=== PATIENT | female | born 1990 | race Caucasian/White ===

== ENCOUNTER → 2023-08-08 09:30 | Outpatient (BNV) | payer OTHER, SELFPAY | PROVIDERS: Visit Provider Psychiatry & Neurology Psychiatry | DX: F10.90 Alcohol use, unspecified, uncomplicated (principal); F39 Unspecified mood [affective] disorder | CPT/HCPCS: 90792; 99213 ==

== ENCOUNTER 2023-08-24 09:15 | Outpatient (RCR) | payer OTHER, SELFPAY ==
--- NOTE | 2023-08-08 10:24 | HO.PS.ADMBH ---
HPI Date of Service: 08/08/23 Chief Complaint: anxiety,depression,AUD Sources of Information: patient interviewed and chart reviewed HPI Guardianship: No Medical Problems Affecting Mental Status: No Narrative: HPI: Referral with family support for mood and substance use disorder. [facility] in May, [facility] for 2 weeks afterwards. Last drink was in June. Endorses intermittent low mood and anxiety, low energy and motivation and excess sleeping at times. Can get suicidal if she drinks. Has been exercising less. Appetite okay. Also discussed sleep hygiene in the context of staying between her own apartment and her boyfriend's place. No psychosis. No SI or agitation. Prefers nonmedication approaches in the context of drug addiction and not wanting to replace 1 thing with another. Also open to same should the need arise in the future. Reports wanting to continue work that she started while at the IOP program in [facility] i.e. groups, hearing other people's perspectives and supports. Found that very helpful. Past Psych: Depression, anxiety and substance use disorder. Last inpatient episode [facility] in May 2023. That was followed with [facility] for just over 2 weeks. Reports that she has done well in the past on Lexapro and Adderall during her college years. Reports Lexapro was very helpful for anxiety but significant sexual side effects. Adderall was helpful, but reports that the crashes or terrible and therefore prefers no stimulant medications. Last had Adderall in 2019. Also trial of Cymbalta in the past. No other med trials. Social: as per chart was born in [place] and has 1 older brother. Family moved to [facility] when she was 2. Lots of academic pressure within the family with mom being a professor at [employer], father ER physician and her brother and ER physician. Attended [employer] studying visual and literary arts. Moved to [place] age 25 and then back to [facility]. Mom has dementia. No substance issues within the family, with the exception of an uncle. Currently living in an apartment in [place]. Also in a relationship since October 2022 and spends time at her boyfriend's apartment. Reports neighbors are good friends. Brother supportive. Last worked in April 2023 and [employer]. 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 No legal issues. Substance: Alcohol use disorder. History of meth use. Alcohol has been most recent issue and has been sober up to 3 months at a time, with longest period around 105 days up until relapse in November 2022. Was utilizing friends and family support, recovery bacilio zoom meetings and exercise. Last drink was 07/08/2023. Past Psychiatric History: Depression, anxiety and substance use disorder. Last inpatient episode [facility] in May 2023. That was followed with [facility] for just over 2 weeks. Reports that she has done well in the past on Lexapro and Adderall during her college years. Reports Lexapro was very helpful for anxiety but significant sexual side effects. Adderall was helpful, but reports that the crashes or terrible and therefore prefers no stimulant medications. Last had Adderall in 2019. Also trial of Cymbalta in the past. No other med trials. Prefers not having medications and working with nonmedication approaches. [facility] Social History: Socially as per chart was born in [place] and has 1 older brother. Family moved to [facility] when she was 2. Lots of academic pressure within the family with mom being a professor at [employer], father ER physician and her brother and ER physician. Attended [employer] studying visual and literary arts. Moved to [place] age 25 and then back to [employer]. Mom has dementia. No substance issues within the family, with the exception of an uncle. Currently living in an apartment in [place]. Also in a relationship since October 2022 and spends time at her boyfriend's apartment. Reports neighbors are good friends. Brother supportive. Last worked in April 2023 and [employer]. 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 No legal issues. Substance History: Alcohol use disorder. History of meth use. Alcohol has been most recent issue and has been sober up to 3 months at a time, with longest period around 105 days up until relapse in November 2022. Was utilizing friends and family support, recovery bacilio zoom meetings and exercise. Last drink was 07/08/2023. Meds/Allergies Allergies Allergies Allergy/AdvReac Type Severity Reaction Status Date / Time amoxicillin Allergy rash Verified 08/08/23 12:38 Mental Status Exam Mental Status Exam Narrative: Pleasant. Engaged. Fairly presented. Organized and articulate. Euthymic. No SI. No HI. No agitation. No psychosis. Insight and judgment good Telehealth Telehealth Location of provider rendering services: other ([facility]) Location of patient: other ([facility]) Telehealth method: video Patient verbally consented to treatment: Yes Minutes spent on Phone/Video with Pt.: 30 Assessment & Plan Assessment & Plan (1) Mood disorder: Status: Acute Code(s): F39 - Unspecified mood [affective] disorder (2) Alcohol use disorder: Status: Acute Code(s): F10.90 - Alcohol use, unspecified, uncomplicated Plan Fulfills criteria for partial hospital program treatment. No indication for psychotropic medications as per evaluation with patient and also their preferences. Will be utilizing community based supports for alcohol use disorder. Does not need further follow-up with psychiatrist at partial hospital program unless patient or staff feel the need for same. Patient educated on: therapeutic strategies Informed Consent: understands Reason for continued partial hosp. stay Substantial Risk for: med/psych decompensation Certification I certify that partial hospital treatment is medically necessary due to the symptoms and problems resulting from the patient's mental illness and the failure to treat the patient at the partial hospital level of care would likely result in the patient requiring inpatient psychiatric care which could not be prevented at a less intensive level of care. Time Spent With Patient Time: Total time managing care of this patient today _45___ minutes.
[2023-08-08 13:14] VITALS: BMI 21.9
--- NOTE | 2023-08-08 14:02 | PC.ADMIT ---
Patient is a 33 year old female who holds a dx of alcohol use disorder, ADHD, KACIE, and MDD who was referred to [facility] by her father as patient has been struggling with alcohol use for many years. Patient reportedly fell while intoxicated and as a result fractured her jaw which needed surgical repair along with having issues with her upper teeth. She reports last use of alcohol was a month ago. Denied current use. Hx of detox for ETOH in May 2023 and step down to [facility]. Patient currently not employed. Wants to work on continued sobriety from ETOH. Stated her family is supporting her financially. 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 She reports her biggest source of stress is her relationship and feeling she is unable to work at this time. Patient is alert and oriented x4. Calm and cooperative. Presented with depressed mood and anxious affect. Denied SI. I gave patient a copy of her safety/relapse plan and I reviewed this with her. She is currently not on any prescription medications. She was prescribed Gabapentin 300 mg TID filled on 07/26/23 however stated she is not taking this medication and was unclear about why she was prescribed this. Reports her therapist and family are supportive.
[2023-08-08 14:41] VITALS: BP 93/66; PULSE 70; TEMP 36.9
--- NOTE | 2023-08-09 17:53 | HO.PHP ---
Clients case was reviewed and opened today in treatment team.
--- NOTE | 2023-08-15 07:51 | HO.PHP ---
08/14/23- Late entry: Selena did not arrive for community meeting and outreach attempts were in the process of being made. When [facility] staff went to begin group one Selena was in the kitchen area. [facility] staff informed Selena that she is unable to partake for the day due to the [facility] guidelines and we had not received any calls. [facility] staff member voiced if she had contacted the program to let the team know she was running late, then we would allow her to stay. Selena appeared agitated and stated she thought she has until 9:40 AM to show up to program. [facility] staff voiced that if she contacts the program and can get there by that time, then she is allowed to attend, but again we received no phone call. Selena asked if the clinician is informing her she has to leave. [facility] staff disclosed unfortunately yes due to our protocols. [facility] staff went to assess safety and Selena turned around to leave. [facility] staff asked again while Selena was walking away. Selena noted that she is safe and will be here tomorrow. [facility] staff was receptive.
--- NOTE | 2023-08-17 16:17 | P.PNPSP_ITS ---
Subjective Subjective Date of Service: 08/17/23 Reason For Visit: anxiety,depression,AUD Interim History: Patient was seen for follow-up today. Patient opened up about her struggles with alcoholism, relapsing a month ago which led to blacking out and sustaining significant injures to her face and mouth. She is status post maxilla fracture repair and oral surgery. She appears to be healing well. She expresses a deepening appreciation for the seriousness of her illness but relays a number of obstacles (mostly intrinsic aspects of her personality and habits - such as an independent and somewhat oppositional/anti- authoritative streak as well as some manipulative behaviors which sounds like get particualrly set off in the midst of inpersonal conflicts/relationship stressors) that interfere with her successfully being in treatment or seeking treatment in the past for alcohol addiction. She expressed some reservation about starting medication but says she is less apprehensive about medication than she was at the start of [facility], may be on account of gains in insight as stemming from her treatment in group therapy thus far in the program. She agrees she would also likely benefit from medications for stress-management, anxiety and mood, but for now feels she is more open and willing to take something to help maintain sobriety/harm reduction. Her struggles appear to be less about managing the day-to-day cravings or urges to drink, and more to do with relapsing in the context of poor impulse control when provoked by specific triggers (namely arguments - I drink at people ) In fact, she says her intention since May 29 was to remain sober, and initially deemed her 2-day relapse in early June (out of the past 3 months sober) as a testament to her ability to remain sober. However we discuss alternative perspectives: that her 2-day relapse in fact may have lasted a lot longer had she not got severely injured, and the fact that she had only relapsed a day earlier before there were serious consequences to her drinking. She is says the fear of something worse happening in the future on account of relapsing is what is motivating her to consider medication options to discourage drinking, particularly because she is more prone to impulsively relapsing than making the intentional decision to start drinking again. Mental Status Exam Mental Status Exam Patient Appearance: Well Grooomed Patient Orientation: Person, Place, Time and Situation Level of Consciousness: Awake and Alert Patient Behavior: Appropriate Mood Description: Apprehensive Affect Description: Appropriate, Cheerful and Anxious Patient Cognition Impaired: No Ability to Follow Directions: Good Speech Pattern: Clear Memory Description: Intact Hallucinations: None Delusions: Not Present Thought Process: Intact Thought Content: positive for Intact (Denies SI, HI. No AVH. Relevant to stres sors, irritability, anxiety) Abnormal Motor Activity Signs and Symptoms: Restlessness Judgement: Fair Judgement and Insight: good/fair but adequate Diagnostics Vital Signs (24Hr): BMI result Body Mass Index 21.9 Assessment & Plan Assessment & Plan (1) Alcohol use disorder: Status: Acute Code(s): F10.90 - Alcohol use, unspecified, uncomplicated (2) Mood disorder: Status: Acute Code(s): F39 - Unspecified mood [affective] disorder Assessment and Plan: we discussed patient might be a good candidate for disulfarim, which she may be open to and was encouraged to take the weekend to fully consider. She is also considering treatment for mood, but she was not as readily engagable regarding this aspect of treatment at this time. She agreed to return to this discussion next week. Plan Continue treatment plan. Hopefully will be starting Antabuse next week Patient educated on: diagnosis and medication risk/benefits Informed Consent: understands Certification I certify that partial hospital treatment is medically necessary due to the symptoms and problems resulting from the patient's mental illness and the failure to treat the patient at the partial hospital level of care would likely result in the patient requiring inpatient psychiatric care which could not be prevented at a less intensive level of care. Total time managing care of this patient today __30__ minutes. Discharge Plan Discharge Attending provider: Fortunato Clark Additional Instructions: Selena has an OP therapist, Gregory Andrews, through [facility]. Selena's next appointment is August 30, 2023 at 2:30 PM. Medications: No Action No Known Home Meds Stand Alone Forms: Patient Portal Discharge page
--- NOTE | 2023-08-21 16:23 | P.PNPSP_ITS ---
Subjective Subjective Date of Service: 08/21/23 Reason For Visit: anxiety,depression,AUD Interim History: Patient seen for follow-up. No acute issues in interim. Attending group. Missed 3 days last week, was slated for discharge today but received an extension. She continues to be conflicted about treatment. She was at times tearful about this. 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 She was prescribed naltrexone and gabapentin in the past and is not willing to take these. She reports her mood as anxious, she says she is calm when she is at the program due to the structure. She says her life is erratic and she struggles more in [facility]. She reports wanting help with ADHD symptoms but is unable to tolerate stimulants without abuse. We explore some non-stimulant med in general she continues to be reluctant to take a medication everyday. Also adds that her boyfriend has a traumatic history related to substance abuse and mental health issues in the family and indicates that being on something regularly will likely cause conflicts, leading to more stress and inevitably undermine the reason for taking it in the first place. Insight limited but improving, she recognizes she needs extra support to maintain sobriety, and continues to struggle with irritability, impulsivity and anger, but adverse to taking something on daily basis. She says she would be wiling to try something PRN to address those moments when she feels overstimulated, agitated, whichis often when she feels more inclined to act out or relapse. Mental Status Exam Mental Status Exam Narrative: Patient Appearance: Well Grooomed Patient Orientation: Person, Place, Time and Situation Level of Consciousness: Awake and Alert Patient Behavior: Appropriate Mood Description: Anxious, tearful at moments Affect Description: Appropriate, Cheerful and Anxious Patient Cognition Impaired: No Ability to Follow Directions: Good Speech Pattern: Clear Memory Description: Intact Hallucinations: None Delusions: Not Present Thought Process: Intact Thought Content: relavent to stressors, conflicted about treatment, medications (Denies SI, HI. No AVH) Abnormal Motor Activity Signs and Symptoms: Restlessness Judgement: Fair Judgement and Insight: good/fair but adequate Diagnostics Vital Signs (24Hr): BMI result Body Mass Index 21.9 Assessment & Plan Assessment & Plan (1) Alcohol use disorder: Status: Acute Code(s): F10.90 - Alcohol use, unspecified, uncomplicated (2) Mood disorder: Status: Acute Code(s): F39 - Unspecified mood [affective] disorder Plan start quetiapine 12.5 - 25 mg up to twice daily as needed for agitation/anxiety Certification I certify that partial hospital treatment is medically necessary due to the symptoms and problems resulting from the patient's mental illness and the failure to treat the patient at the partial hospital level of care would likely result in the patient requiring inpatient psychiatric care which could not be prevented at a less intensive level of care. Total time managing care of this patient today ____ minutes. Discharge Plan Discharge Attending provider: Fortunato Clark Additional Instructions: Selena has an OP therapist, Gregory Andrews, through [facility]. Selena's next appointment is August 30, 2023 at 2:30 PM. Medications: New quetiapine 25 mg tablet 12.5 - 25 mg PO BID PRN (Reason: agitation) Qty: 20 0RF Stand Alone Forms: Patient Portal Discharge page Patient Education: Alcohol Use Disorder (DC)
--- NOTE | 2023-08-24 15:07 | P.PNPSP_ITS ---
Subjective Subjective Date of Service: 08/24/23 Reason For Visit: anxiety,depression,AUD Interim History: Patient seen for discharge today. Patient reportedly tried Seroquel and it caused her considerable fatigue and sedation. She acknowledges she had taken a full tablet as opposed to 1/4 or 1/2 tablet as we had discussed due to her sensitivity to medications. She said she did split the tablet but then impulsively took both halves because I got addiction problems and feels she is unable to take the medication as directed. Her boyfriend also was reportedly upset about it and wanted to speak to me. She vents in general about her frustration with medication-approaches to addressing mental health issues, and states she has no intention of taking medication any further. I reassure her that the choice to take or not take medication is entirely hers and the only reason we had trialled prn Seroquel was that she was open to taking something on an as needed basis only, and had agreed she might need something to address agitation particularly when triggered that often leads to her impulsively relapsing. She plans to throw out the medication and we reviewed ways to discard the medication safely and responsibly. No other acute concerns or issues. She reports her mood as stable at this time and appreciates that the program gave her an extra couple of days to sort out a plans to sign up for some classes and provide a little more structure to her day moving forward. She denies any SI, no hopelessness. She denies any anger, AI or HI. She appears irritable at times, but maintains behavioral control and was more engaged and agreeable over the course of our discussion today. Mental Status Exam Mental Status Exam Narrative: Patient Appearance: Well Grooomed Patient Orientation: Person, Place, Time and Situation Level of Consciousness: Awake and Alert Patient Behavior: Appropriate Mood Description: Anxious, tearful at moments Affect Description: Appropriate, Cheerful and Anxious Patient Cognition Impaired: No Ability to Follow Directions: Good Speech Pattern: Clear Memory Description: Intact Hallucinations: None Delusions: Not Present Thought Process: Intact Thought Content: relavent to stressors, conflicted about treatment, medications (Denies SI, HI. No AVH) Abnormal Motor Activity Signs and Symptoms: Restlessness Judgement: Fair Judgement and Insight: good/fair but adequate Diagnostics Vital Signs (24Hr): BMI result Body Mass Index 21.9 Assessment & Plan Assessment & Plan (1) Alcohol use disorder: Status: Acute Code(s): F10.90 - Alcohol use, unspecified, uncomplicated (2) Mood disorder: Status: Acute Code(s): F39 - Unspecified mood [affective] disorder Plan Discharge from [facility]. Does not plan to continue with medication She states she is satisfied with treatment here and feels she most benefits from non-medication therapeutics. Patient educated on: diagnosis, medication risk/benefits, substance abuse and therapeutic strategies Informed Consent: understands Reason for contiued partial hosp. stay Substantial Risk for: stable for discharge Certification I certify that partial hospital treatment is medically necessary due to the symptoms and problems resulting from the patient's mental illness and the failure to treat the patient at the partial hospital level of care would likely result in the patient requiring inpatient psychiatric care which could not be prevented at a less intensive level of care. Total time managing care of this patient today _30___ minutes. Discharge Plan Discharge Attending provider: Fortunato Clark Additional Instructions: Selena has an OP therapist, Gregory Andrews, through [facility]. Selena's next appointment is August 30, 2023 at 2:30 PM. Stand Alone Forms: Patient Portal Discharge page Patient Education: Mood Disorders (DC), Alcohol Use Disorder (DC)
== END 2023-08-24 23:59 | disposition home or self-care (01) ==
LOC: HO.PHPA 09:15
PROVIDERS: Visit Provider Psychiatry & Neurology Psychiatry
DX: F39 Unspecified mood [affective] disorder (principal); F10.90 Alcohol use, unspecified, uncomplicated
CPT/HCPCS: 90791; 90853